=== PATIENT | male | born 1990 | race Caucasian/White ===

== ENCOUNTER 2025-06-17 11:19 | Inpatient (IN) | payer MEDICAID ==
[2025-06-17] VITALS (8 sets, daily range): BP systolic 106–133; BP diastolic 70–89; PULSE 65–86; RESP 16–19; TEMP 95–98.6; O2SAT 95–98
[~2025-06-17] VITALS: Ht 180.3 cm; Wt 106.0 kg
[2025-06-17 12:45] LABS: GLUCOMETER DEV NAME(LOC) POC.BV; POC SARS-COV2 AG, FIA NEGATIVE (NEGATIVE)
[2025-06-17] MEDS ORDERED: PROMETHAZINE HCL 25 MG TABLET PO PRN (14:00)
[2025-06-17] MEDS: TUBERCULIN, PURIFIED PROTEIN DERIVATIVE 5 TU/0.1 ML SYRINGE ID ONE (14:00)
[2025-06-17] MEDS ORDERED: ZOLPIDEM TARTRATE 10 MG TABLET PO PRN (14:00)
[2025-06-17] MEDS ORDERED: GuaiFENesin/D-METHORPHAN [SUGAR-FREE] 200-20MG/10 ML SYRUP UDCUP PO PRN (14:00)
[2025-06-17] MEDS ORDERED: MAG HYDROX/ALUMINUM HYD/SIMETH ES 30 ML SUSPENSION UDCUP PO PRN (14:00)
[2025-06-17] MEDS ORDERED: MAGNESIUM HYDROXIDE SUSPENSION 30 ML UDCUP PO PRN (14:00)
[2025-06-17] MEDS ORDERED: LOPERAMIDE HCL 2 MG CAPSULE PO PRN (14:00)
[2025-06-17] MEDS ORDERED: ACETAMINOPHEN 325 MG TABLET PO PRN (14:00)
[2025-06-17] MEDS: THIAMINE 100 MG TABLET PO SCH (15:57)
[2025-06-17] MEDS: GABAPENTIN 100 MG CAPSULE PO SCH (15:57)
[2025-06-17] MEDS: OLANZapine 5 MG RAPDIS TABLET PO PRN (17:25)
[2025-06-17] MEDS: MIRTAZAPINE 15 MG TABLET PO SCH (20:39)
[2025-06-17] MEDS: MELATONIN 5 MG TABLET PO SCH (20:39)
[2025-06-18] VITALS (7 sets, daily range): BP systolic 106–130; BP diastolic 55–85; PULSE 56–98; RESP 15–18; TEMP 97.1–97.8; O2SAT 96–99
[2025-06-18] MEDS: ACAMPROSATE CALCIUM 333 MG DR TABLET PO SCH (08:38)
[2025-06-18] MEDS: NALTREXONE HCL 50 MG TABLET PO SCH (08:38)
[2025-06-18] MEDS: MULTIVITAMINS WITH MINERALS, THERAPEUTIC TABLET PO SCH (08:38)
[2025-06-18] MEDS: FOLIC ACID 1 MG TABLET PO SCH (08:38)
[2025-06-18 08:39] LABS: PLATELET COUNT (AUTO) 283 K/uL (150-450); RED BLOOD CELL COUNT(AUTO) 4.35 MIL/uL (4.50-5.90); RED CELL DISTRIBUTION WIDTH 14.2 % (11.5-14.5); WHITE BLOOD COUNT (AUTO) 8.5 K/uL (4.5-11.0)
[2025-06-18 09:04] LABS: ASPARTATE AMINOTRANSFERASE 43 U/L (15-37); CALCIUM, TOTAL 8.9 mg/dL (8.8-10.5); CHOL/HDL RATIO 5.3 (4.2-7.3); CREATININE 0.97 mg/dL (0.60-1.30); GLOMERULAR FILTR. RATE CALC > 60 mL/min (>60); GLUCOSE,RANDOM 106 mg/dL (70-110); TOTAL PROTEIN, SERUM 7.4 g/dL (6.4-8.2); UREA NITROGEN, BLOOD 14 mg/dL (7-18)
[2025-06-18 09:07] LABS: SODIUM SERUM 142 mmol/L (136-145)
[2025-06-18] MEDS ORDERED: TUBERCULIN, PURIFIED PROTEIN DERIVATIVE 5 TU/0.1 ML SYRINGE ID ONE (18:00)
[2025-06-18] MEDS: ATORVASTATIN CALCIUM 40 MG TABLET PO SCH (20:27)
[2025-06-19 02:00] VITALS: BP 120/85; PULSE 65; RESP 18; TEMP 97.3; O2SAT 99
[2025-06-19 08:16] VITALS: BP 105/71; PULSE 65; RESP 17; TEMP 97.4; O2SAT 99
[2025-06-19 08:51] LABS: APPEARANCE,URINE CLEAR (CLEAR); GLUCOSE, URINE (UA) NEGATIVE (NEGATIVE); LEUKOCYTE ESTERASE ,URINE NEGATIVE (NEGATIVE); NITRATE,URINE NEGATIVE (NEGATIVE); OCCULT BLOOD,URINE NEGATIVE (NEGATIVE); PH,URINE DRUG SCREEN 6.0 (5.0-8.0); SPECIFIC GRAVITIY, URINE 1.023 (1.003-1.030)
[2025-06-19 09:00] LABS: ALCOHOL, URINE DRUG SCREEN POSITIVE (NEGATIVE); AMPHET/METH SCREEN,URINE NEGATIVE (NEGATIVE); BARBITURATE SCREEN, URINE NEGATIVE (NEGATIVE); CANNABINOID SCREEN,URINE NEGATIVE (NEGATIVE); COCAINE SCREEN,URINE NEGATIVE (NEGATIVE); METHADONE SCREEN, URINE NEGATIVE (NEGATIVE)
[2025-06-19] MEDS ORDERED: TUBERCULIN, PURIFIED PROTEIN DERIVATIVE 5 TU/0.1 ML SYRINGE ID ONE (09:00)
[2025-06-19] MEDS ORDERED: GABAPENTIN 400 MG CAPSULE PO PRN (12:00)
[2025-06-19] MEDS: LORazepam 2 MG/ML VIAL IM ONE (12:25)
[2025-06-19] MEDS ORDERED: GABA-1201 PO (12:31)
[2025-06-19] MEDS ORDERED: PARO-37 PO (12:31)
[2025-06-19] MEDS ORDERED: NALT50TA33 PO (12:31)
[2025-06-19] MEDS ORDERED: ACAM333T7 PO (12:31)
[2025-06-19] MEDS ORDERED: MIRT-89 PO (12:31)
[2025-06-19] MEDS: MIRTAZAPINE 15 MG TABLET PO SCH (21:21)
[2025-06-19 21:32] VITALS: BP 121/82; PULSE 65; RESP 17; TEMP 97.4; O2SAT 98
[2025-06-19 23:28] VITALS: BP 121/82; PULSE 65; RESP 17; TEMP 97.4; O2SAT 98
[2025-06-20 08:24] VITALS: BP 121/83; PULSE 68; RESP 16; TEMP 97.6; O2SAT 98
== END 2025-06-20 11:40 | disposition home or self-care (01) | DRG 751 ==
LOC: B3A 12:27 → EDBD 12:27
PROVIDERS: ADMIT Psychiatry & Neurology Psychiatry; ATTEND Psychiatry & Neurology Psychiatry
PROC: GZHZZZZ Group Psychotherapy (ICD-10-PCS; principal; 2025-06-17)
PROC: GZ58ZZZ Individual Psychotherapy, Cognitive-Behavioral (ICD-10-PCS; 2025-06-17)
PROC: GZ56ZZZ Individual Psychotherapy, Supportive (ICD-10-PCS; 2025-06-18)
DX: F33.2 Major depressive disorder, recurrent severe without psychotic features (principal); Z91.148 Patient's other noncompliance with medication regimen for other reason; R45.851 Suicidal ideations; E78.2 Mixed hyperlipidemia; F10.20 Alcohol dependence, uncomplicated; Z20.822 Contact with and (suspected) exposure to COVID-19; F17.200 Nicotine dependence, unspecified, uncomplicated; F41.9 Anxiety disorder, unspecified; Z59.9 Problem related to housing and economic circumstances, unspecified; Z55.9 Problems related to education and literacy, unspecified; Z63.9 Problem related to primary support group, unspecified; Z65.3 Problems related to other legal circumstances
CPT/HCPCS: 80053; 80061; 80307; 81003; 83036; 84439; 84443; 85025; 86592; J1200; J1630; J2060